=== PATIENT | female | born 1970 ===

== ENCOUNTER 2021-02-06 05:10 | Observation (INO) ==
--- NOTE | 2021-01-29 10:28 | Anesthesiology Consultation ---
Date of Service January 29, 2021 Assessment & Plan (1) Encounter for pre-operative examination: - COVID screening: Per assessment on 01/29: Travel screen negative, no known COVID-19 positive contacts or current COVID-19 related symptoms. Surgeon trey stevenson preop COVID testing. Awaiting results. - Check test AM DOS Chart Review Chart Review: Acceptable Risk for Surgery and Patient NOT seen in Pre Admission Testing History Surgery Operation Date: 02/06/21 07:00 Proposed Procedures p Total Laparoscopic Hysterectomy, Bilateral Salpingectomy Cystoscopy Possible Laparotomy - Nimesh Celeste MD Height/Weight Height: 5 ft 5 in Weight: 104.326 kg Allergies Allergy/AdvReac Type Severity Reaction Status Date / Time No Known Allergies Allergy Verified 01/29/21 10:04 Medications Home Medications Medication Instructions Recorded Confirmed Last Taken norethindrone acetate 5 mg tablet 5 mg PO BID 01/29/21 01/29/21 Unknown Past Medical History Medical History History of COVID-19 Dx 04/2020 > symptoms at time of fatigue, fever chills > resolved Obesity Past Surgical History Surgical History History of dilation and curettage Social History Smoking Status: Never smoker Do You Dip or Chew Tobacco: No Hx Alcohol Use: Yes Alcohol type: beer alcohol intake frequency: a few times a month Hx Substance Use: No substance use type: does not use
[2021-02-06] MEDS ORDERED: ceFAZolin 2000MG 2,000 MG/15 ML SYR IV SCH (06:00)
[2021-02-06] MEDS ORDERED: LACTATED RINGER'S 1,000 ML IV SCH (06:00)
[2021-02-06] MEDS ORDERED: LR 15ML/HR IV SCH (06:00)
[2021-02-06] MEDS ORDERED: KETOROLAC 30 MG/ML VIAL IV PRN (06:24)
[2021-02-06] MEDS ORDERED: PROMETHAZINE HCL 6.25 MG in SODIUM CHLORIDE 0.9% 50 ML IV PRN (06:24)
[2021-02-06] MEDS ORDERED: ONDANSETRON INJ 2 MG/ML 2 ML VIAL IV PRN ×2 (06:24→10:25)
[2021-02-06] MEDS ORDERED: ATROPINE SULFATE 0.1 MG/ML 10ML SYR IV PRN (06:24)
[2021-02-06] MEDS ORDERED: LABETALOL HCL IV 5 MG/ML 20ML IV PRN (06:24)
[2021-02-06] MEDS ORDERED: fentaNYL citrate 100 MCG/2 ML VIAL IV PRN (06:24)
[2021-02-06] MEDS ORDERED: PROPOFOL IV EMULSION 10 MG/ML 20 ML VIAL IV ONE (06:36)
[2021-02-06] MEDS ORDERED: ROCURONIUM BROMIDE 10 MG/ML 5 ML VIAL IV ONE (06:36)
[2021-02-06] MEDS ORDERED: LIDOCAINE 2% 2 ML VIAL/AMP(20MG/ML) INFIL ONE (06:36)
[2021-02-06] MEDS ORDERED: fentaNYL citrate 100 MCG/2 ML VIAL ONE ×3 (06:36→09:54)
[2021-02-06] MEDS ORDERED: MIDAZOLAM HCL 1 MG/ML 2ML VIAL ONE (06:37)
[2021-02-06] MEDS ORDERED: BUPIVACAINE 0.5 % 5 MG/1 ML MPF 30ML VIAL ONE (06:53)
--- NOTE | 2021-02-06 06:56 | History & Physical Bridge Note ---
Date of Service February 06, 2021 History & Physical Bridge Note I have examined the patient, reviewed the History & Physical and in the interval since the performance of the History & Physical I have noted the following changes of clinical significance: no changes noted
[2021-02-06] MEDS ORDERED: ONDANSETRON INJ 2 MG/ML 2 ML VIAL ONE (08:22)
[2021-02-06] MEDS ORDERED: DEXAMETHASONE SOD INJ 4 MG/ML VIAL ONE (08:22)
[2021-02-06] MEDS ORDERED: GLYCOPYRROLATE 0.2 MG/ML VIAL ONE (08:22)
[2021-02-06] MEDS ORDERED: NEOSTIGMINE METHYLSULFATE 1 MG/ML 10ML VIAL ONE (08:22)
[2021-02-06] MEDS ORDERED: ePHEDrine sulfate 50 MG/ML SYR ONE (08:22)
[2021-02-06] MEDS ORDERED: FLOSEAL HEMOSTATIC MATRIX 10ML TOP ONE (09:39)
[2021-02-06] MEDS ORDERED: HYDROmorphone INJ 2 MG/ML SYR/VIAL ONE (09:56)
[2021-02-06] MEDS ORDERED: PROMETHAZINE HCL 12.5 MG in SODIUM CHLORIDE 0.9% 50 ML IV PRN (10:25)
[2021-02-06] MEDS ORDERED: MAGNESIUM HYDROXIDE SUSP 30 ML UDC PO PRN (10:25)
[2021-02-06] MEDS ORDERED: PROMETHAZINE HCL 25 MG in SODIUM CHLORIDE 0.9% 50 ML IV PRN (10:25)
[2021-02-06] MEDS ORDERED: bisacodyL 10 MG SUPP PR PRN (10:25)
[2021-02-06] MEDS ORDERED: ZOLPIDEM TARTRATE 5 MG TAB PO PRN (10:25)
--- NOTE | 2021-02-06 10:25 | Post Operative Brief Note ---
Immediate Post Op Note v1 Date of Surgery February 06, 2021 Pre & Post Diagnosis Operation Date: 02/06/21 07:00 Pre-Op Diagnosis: Menorrhagia Post-Op Diagnosis: Menorrhagia I identified the patient and participated in the time-out.: Yes Procedure Operation Date: 02/06/21 07:00 Actual Procedures p Total Laparoscopic Hysterectomy, Bilateral Salpingectomy, Cystoscopy(Not Applicable) - Nimesh Celeste MD Surgeon Nimesh Celeste MD Community Service Worker inna Martinez Estimated Blood Loss 10 Findings Consistent with Post-Op Diagnosis Drains Davis Catheter
--- NOTE | 2021-02-06 10:59 | Anesthesiology Progress Note ---
Date of Service February 06, 2021 Anesthesia Post Procedure Vital Signs Vital Signs: Temp Pulse Pulse Resp BP Pulse Ox 02/06/21 10:50 101 H 17 123/77 100 02/06/21 10:40 96 H 15 127/82 100 02/06/21 10:30 102 H 13 116/68 100 02/06/21 10:23 98.4 F 108 H 20 130/73 98 02/06/21 05:32 98.2 F 110 H 18 164/84 H 97 Transfer of Care Handoff Completed per policy Notes Mental Status: alert / awake / arousable Patient Amnestic to Procedure: Yes Nausea / Vomiting: adequately controlled Pain: adequately controlled Airway Patency, RR, SpO2: stable & adequate BP & HR: stable & adequate Hydration State: stable & adequate Anesthetic Complications: no major complications apparent and Pt Satisfied with anesthetic care
[2021-02-06] MEDS: LACTATED RINGER'S 1,000 ML IV SCH ×2 (12:00→21:53)
[2021-02-06] MEDS: IBUPROFEN 600 MG TAB PO PRN (15:13)
[2021-02-06] MEDS: SIMETHICONE 80 MG CHEW PO PRN (16:25)
[2021-02-06] MEDS: oxyCODONE/ACETAMINOPHEN 5mg/325mg TAB PO PRN (16:25)
[2021-02-06] MEDS: DOCUSATE SODIUM 100 MG CAP PO SCH (20:31)
[2021-02-06 20:35] LABS: Hematocrit (blood only) 18.7 % (37-47)
--- NOTE | 2021-02-06 20:38 | Operative Report (OR) ---
DATE OF PROCEDURE: 02/06/2021. INDICATION FOR SURGERY: This is a 50-year-old with dysfunctional uterine bleeding, failed medical th erapy. PREOPERATIVE DIAGNOSES: 1. Menorrhagia. 2. Dysfunctional uterine bleeding, failed medical therapy. POSTOPERATIVE DIAGNOSES: 1. Menorrhagia. 2. Dysfunctional uterine bleeding, failed medical therapy. SURGEON: Nimesh Celeste MD. X RAY DEVELOPER: LIZ Moore. ATTESTATION FOR X RAY DEVELOPER: Specialty Manufacturing Supervisor's presence was necessary to help with manipulation of instrumen ts and retraction as well as providing appropriate better visualization to have safe procedure. PROCEDURES: 1. Examination under anesthesia. 2. Total laparoscopic hysterectomy, bilateral salpingectomy, and cystoscopy. ANESTHESIA: General. DRAINS: Davis catheter. ESTIMATED BLOOD LOSS: 5 mL. INTRAVENOUS FLUIDS: 1700 mL. URINE OUTPUT: 250 mL, clear urine at the end of the procedure. SPECIMENS: Uterus and cervix, left and right fallopian tubes. INTRAOPERATIVE COMPLICATIONS: None. PATIENT'S CONDITION: Stable. DISPOSITION: Postanesthesia care unit. FINDINGS: Normal female escutcheon. No lesion is seen in the vagina on the cervix. Laparoscopic ex am shows a uterus of about 15-week size. Both ovaries appeared grossly normal. There were no signif icant abdominopelvic adhesions in the abdomen. DESCRIPTION OF PROCEDURE: The patient was taken to the operating room where she was prepped and drap ed in normal sterile fashion. Timeout was called. A Davis catheter was placed in the patient's blad jovana. A weighted speculum was placed in the vagina. Mckenzie retractor was used to retract any part of t he vagina. Single tooth tenaculum was used to grab the cervix. Uterus was sounded and a VCare uteri ne manipulator was placed into the uterus without difficulty. Attention was paid to the abdominal part of the procedure where a supraumbilical incision was made 4 cm above the umbilicus. This was made with a 11 blade. A long Velma was used to dissect the subcuta neous space to palpate the fascia. Veress needle was introduced into the fascia at a 45-degree angle while tenting up the abdomen. Abdominal placement of the Veress needle was confirmed with a water-f illed syringe, a suction and water drop test was performed. Abdomen is insufflated with 4 L of CO2. Veress needle was removed and a size 10 nonbladed trocar with a laparoscope was introduced into the abdomen at a 45-degree angle while tenting up the abdomen, this was done under direct visualization. Once inside the abdomen, three more accessory ports were placed, two 5 mm trocars and 10 trocar on t he left lower quadrant of the abdomen. Findings of the abdomen are as dictated above. All these acc essory ports were placed in Trendelenburg position. LigaSure was passed through the left accessory port. The left fallopian tube was grabbed 4 cm from t he cornua with the LigaSure and transected. This was followed by opening of the left anterior leaf o f the broad ligament. The left round ligament and left utero-ovarian ligament were also transected. The mesovarian ligament and dissection was also transected. There was good hemostasis. Anterior br oad ligament dissection was carried out to the mid-section of the vesicouterine peritoneum with the b ladder using the Harmonic scalpel. Same procedure was carried on the contralateral side. The paint tinter ior broad ligaments were carefully dissected along from both sides over the uterosacral arch in order to display the ureters laterally. Using traction and countertraction and the Maryland retractor and irrigation probe was used to further dissect the bladder off the lower segment of the uterus. Bladd er pillars and pubovesical fascia was dissected as well. Harmonic scalpel was used to obtain hemosta sis whenever needed. The uterine manipulator was not palpable over the vaginal tissue. The right uterine pedicle skeleton ized and coagulated with LigaSure. There was good hemostasis. Same procedure was performed on the c ontralateral side. The cardinal ligament transected from both sides. Once good hemostasis was obtained, colpotomy was performed using the Harmonic scalpel from both sides . Uterus was removed through the vagina while still attached to the uterine manipulator. A glove-fi lled with gauze was placed into the vagina to maintain hemostasis. The left and right fallopian tubes are transected. The fallopian tube was positioned medially anteri analilia and a salpingectomy was performed. Same procedure was performed on the contralateral side. The se tubes removed through the left lower 10 mm trocar site. Hemostasis was obtained. Copious amount of irrigation was used to irrigate the abdomen. EndoStitch closure device was passed through the 10 mm port on the left side using the Maryland grasp er for traction. A colpotomy closure was performed. The uterosacral ligaments were incorporated int o the closure to decrease the risk of prolapse. Lapra-Tys were used with the EndoStitch. Attention was paid to the cystoscopy part of the procedure where a 30-degree scope was placed into th e bladder. On evaluation of the bladder. There were no sutures seen. There was no gross bleeding. There was no trauma. A bubble was seen anterior of the bladder, which indicates a closed cavity. T he both left and right urethral orifices are seen. Urine was seen jetting through both orifices with out any difficulty. The scope was removed from the bladder. Attention was paid back to the abdominal part of the procedure where the 10 mm sites were closed. Th e fascia at 10 mm sites was grabbed with Kochers, Vicryl stitch was used to close the fascia and plai n suture used to close the subcutaneous space. The patient had significant BMI. This was done to destiny th the 10 mm port site entries. Skin was closed with 4-0 Monocryl. The 5 mm sites; however, are lucrecia sed with Dermabond sealant. All instruments were removed from the abdomen and vagina and accounted for x2 including sponges, need les, and retractors. The patient was sent in recovery in stable condition. Job ID: [id number]
[2021-02-06] MEDS ORDERED: SODIUM CHLORIDE 0.9% 250 ML IV PRN (20:58)
[2021-02-06] MEDS ORDERED: diphenhydrAMINE Capsule 25 MG CAP PO ONE (21:07)
[2021-02-06] MEDS ORDERED: LACTATED RINGER'S 500 ML IV ONE (21:24)
[2021-02-06 21:45] LABS: Hematocrit (blood only) 20.3 % (37-47); Hemoglobin 5.3 g/dL (12.0-16.0)
[2021-02-06] MEDS: ACETAMINOPHEN 325 MG TAB PO PRN (21:49)
--- NOTE | 2021-02-06 21:56 | Progress Note ---
Date of Service February 06, 2021 Assessment & Plan Admission and Anticipated Discharge Date Admission Date: February 06, 2021 Subjective Called by Nurse to see pt with STAT H/H of 10/07 On arrival pt is alert,awake, denies any SOB and completely asymptomatic BP is 130-140/80's Pulse is low 100's Urine output >30 No bleeding from vagina Review of her vitals are not significantly changed from preop Preop H/H is not available for review. PE; Lung CTA bilat Abd; Incision VC/D/I , No guarding or rebound Plan repeat H/H repeated agree to 2 units PRBC transfer Results & Data ([facility]) Vital Signs (Past 12 Hours) Vital Signs Temp Pulse Pulse Pulse Resp BP Pulse Ox 02/06/21 21:15 36.4 C L 114 H 20 135/77 98 02/06/21 19:40 36.8 C 106 H 18 143/80 H 98 02/06/21 15:07 36.7 C 101 H 16 132/78 97 02/06/21 14:05 36.4 C L 102 H 16 150/88 H 97 02/06/21 13:06 36.7 C 102 H 16 119/72 96 02/06/21 12:33 36.4 C L 108 H 16 121/75 96 02/06/21 12:05 36.8 C 110 H 16 136/80 96 02/06/21 11:50 91 H 17 132/78 97 02/06/21 11:35 105 H 16 124/76 97 02/06/21 11:20 93 H 16 127/80 97 02/06/21 11:10 106 H 16 134/81 97 02/06/21 11:00 36.9 C 92 H 14 125/79 98 02/06/21 10:50 101 H 17 123/77 100 02/06/21 10:40 96 H 15 127/82 100 02/06/21 10:30 102 H 13 116/68 100 02/06/21 10:23 36.9 C 108 H 20 130/73 98
[2021-02-07] MEDS: oxyCODONE/ACETAMINOPHEN 5mg/325mg TAB PO PRN ×4 (02:13→17:23)
[2021-02-07] MEDS: IBUPROFEN 600 MG TAB PO PRN ×5 (06:13→20:53)
[2021-02-07 06:57] LABS: Hemoglobin 7.1 g/dL (12.0-16.0); Mean Corpuscular Hgb Conc 29.6 g/dL (32-36); Mean Platelet Volume 10.5 fL (7.4-10.4); Platelet Count 278 K/uL (130-400); RDW Coefficient of Variation 25.3 % (11.5-14.5); RDW Standard Deviation 64.4 fL (36.4-46.3); Red Blood Count 3.38 M/uL (4.2-5.4); White Blood Count 11.85 K/uL (4.8-10.8)
[2021-02-07 07:02] LABS: Basophils # (auto) 0.02 K/uL (0-0.2); Basophils % (auto) 0.2 %; Eosinophils # (auto) 0.01 K/uL (0-0.5); Eosinophils % (auto) 0.1 %; Hypochromasia Present; Immature Granulocytes # (auto) 0.02 K/uL (0.00-0.02); Immature Granulocytes % (auto) 0.2 %; Lymphocytes % (auto) 28.7 %; Microcytosis Present; Monocytes % (auto) 7.6 %; Neutrophils % (auto) 63.2 %
[2021-02-07 07:12] LABS: BUN Creatinine Ratio 8.3 (10-20); Calcium 8.2 mg/dl (8.5-10.1); Creatinine Clr Calc Pharmacy 90.1 ml/min; Est GFR (Non-African American) 75.1 ml/min; Potassium 4.4 mmol/L (3.5-5.1)
[2021-02-07] MEDS: DOCUSATE SODIUM 100 MG CAP PO SCH ×2 (08:29→20:54)
[2021-02-07] MEDS: FERROUS SULFATE 325 MG TAB PO SCH ×2 (08:29→17:21)
--- NOTE | 2021-02-07 11:32 | Obstetrical Progress Note ---
Date of Service February 07, 2021 Assessment & Plan (1) S/P laparoscopic hysterectomy: (2) Chronic anemia: Post op day #1 pt doing well disch home with instructions Subjective Review of Systems All systems reviewed & are unremarkable except as noted in HPI & below Physical Exam Constitutional WD/WN, vitals as above Eyes PERRL, conjunctivae normal, anicteric sclerae ENMT external ear and nose normal, oropharynx normal Neck trachea midline, no thyromegaly Respiratory normal respiratory effort, lungs clear to auscultation Cardiovascular RRR, no murmur, no edema Chest (Breasts) normal inspection/palpation of breasts Gastrointestinal (Abdomen) normal bowel sounds, soft, nontender, no hepatosplenomegaly Musculoskeletal no cyanosis or clubbing, extremities motor strength 5/5 Skin + incision (Incision clean,dry and intact) Neurologic patellar DTR's 2+ bilat, sensation intact Psychiatric A+Ox3, euthymic affect Genitourinary no vaginal lesions, no adnexal mass Lymphatic no cervical or axillary lymphadenopathy Results & Data ([facility]) Vital Signs (Past 12 Hours) Vital Signs Temp Pulse Pulse Pulse Resp BP BP 02/07/21 09:20 36.7 C 108 H 18 158/88 H 02/07/21 04:45 36.9 C 96 H 18 145/83 H 02/07/21 03:45 37.0 C 100 H 100 H 16 144/80 H 144/80 H 02/07/21 02:45 37.0 C 93 H 18 145/83 H 02/07/21 02:15 37.2 C 102 H 18 144/81 H 02/07/21 02:00 36.9 C 96 H 18 138/78 02/07/21 01:42 37.1 C 97 H 16 142/80 H 02/07/21 01:20 37.1 C 97 H 18 142/80 H 02/07/21 00:50 37.1 C 104 H 18 143/78 H 02/06/21 23:50 37.2 C 100 H 18 135/76 Pulse Ox 02/07/21 09:20 97 02/07/21 04:45 96 02/07/21 03:45 96 02/07/21 02:45 96 02/07/21 02:15 97 02/07/21 02:00 97 02/07/21 01:42 96 02/07/21 01:20 96 02/07/21 00:50 97 02/06/21 23:50 97
--- NOTE | 2021-02-07 11:39 | Progress Note ---
Date of Service February 07, 2021 Assessment & Plan Admission and Anticipated Discharge Date Admission Date: February 06, 2021 Subjective Pt doing well Received 2 units PRC for chronic anemia stable H/H disch home with instructions Results & Data ([facility]) Vital Signs (Past 12 Hours) Vital Signs Temp Pulse Pulse Pulse Resp BP BP 02/07/21 09:20 36.7 C 108 H 18 158/88 H 02/07/21 04:45 36.9 C 96 H 18 145/83 H 02/07/21 03:45 37.0 C 100 H 100 H 16 144/80 H 144/80 H 02/07/21 02:45 37.0 C 93 H 18 145/83 H 02/07/21 02:15 37.2 C 102 H 18 144/81 H 02/07/21 02:00 36.9 C 96 H 18 138/78 02/07/21 01:42 37.1 C 97 H 16 142/80 H 02/07/21 01:20 37.1 C 97 H 18 142/80 H 02/07/21 00:50 37.1 C 104 H 18 143/78 H 02/06/21 23:50 37.2 C 100 H 18 135/76 Pulse Ox 02/07/21 09:20 97 02/07/21 04:45 96 02/07/21 03:45 96 02/07/21 02:45 96 02/07/21 02:15 97 02/07/21 02:00 97 02/07/21 01:42 96 02/07/21 01:20 96 02/07/21 00:50 97 02/06/21 23:50 97
--- NOTE | 2021-02-07 13:05 | Progress Note ---
Date of Service February 07, 2021 Assessment & Plan Admission and Anticipated Discharge Date Admission Date: February 06, 2021 Subjective Pt is fatigued, HR is still in the 100;s Recommend keeping for prolonged observation Results & Data ([facility]) Vital Signs (Past 12 Hours) Vital Signs Temp Pulse Pulse Pulse Resp BP BP 02/07/21 09:20 36.7 C 108 H 18 158/88 H 02/07/21 04:45 36.9 C 96 H 18 145/83 H 02/07/21 03:45 37.0 C 100 H 100 H 16 144/80 H 144/80 H 02/07/21 02:45 37.0 C 93 H 18 145/83 H 02/07/21 02:15 37.2 C 102 H 18 144/81 H 02/07/21 02:00 36.9 C 96 H 18 138/78 02/07/21 01:42 37.1 C 97 H 16 142/80 H 02/07/21 01:20 37.1 C 97 H 18 142/80 H Pulse Ox 02/07/21 09:20 97 02/07/21 04:45 96 02/07/21 03:45 96 02/07/21 02:45 96 02/07/21 02:15 97 02/07/21 02:00 97 02/07/21 01:42 96 02/07/21 01:20 96
--- NOTE | 2021-02-07 19:14 | Discharge Summary (DS) ---
DATE OF ADMISSION: 02/06/2021. DATE OF DISCHARGE: 02/09/2021. HOSPITAL COURSE: This is a 50-year-old with menorrhagia and fibroid uterus, failed medical therapy. The patient on 02/06/2021 underwent total laparoscopic hysterectomy, bilateral salpingectomy, and cystoscopy; met all milestones in recovery and today is being discharged home in stable condition. Details of surgery is in the surgical note. The patient after surgery, continued to have mild tachycardia. Workup done later that evening showed a hemoglobin of 5.0. The patient had had chronic anemia, blood loss was not acute and was not intraoperative. This is a reflection of preoperative having a low H and H. Because of the bradycardia, decision was therefore made to transfuse the patient with two units of blood. She received 2 units of blood and her hemoglobin was stable at 7.1. Pt continued to experience SOB and fatigued. she was therefore given an a addition unit of PRBC on02/07/21. her SOB and generalized fatigue improved. She ws worked up for chest pain via internal medicine. this included an echocardiogram. Echo was nml . pt was also started on antihypertensive her Bp improved Otherwise, the patient met all milestones in recovery. She is able to ambulate, tolerate p.o. food, and medications. PAST MEDICAL HISTORY: History of obesity, elevated BMI. PAST SURGICAL HISTORY: History of D and C. FAMILY HISTORY: Noncontributory. SOCIAL HISTORY: The patient is and lives with spouse and children. Denies tobacco or drug use. ALLERGIES: No known drug allergies. PHYSICAL EXAMINATION: GENERAL: Well-developed, well-nourished white female, fatigued after surgery and chronic blood loss. VITAL SIGNS: Blood pressure 130/80pulse 90, respirations 18, temperature is 36.7. LABORATORY DATA: White count 11.8, hemoglobin 7.1, hematocrit 24.0, platelets 278. CONDITION ON DISCHARGE: Stable. OPERATIONS: Total laparoscopic hysterectomy, bilateral salpingectomy, cystoscopy, history of chronic anemia. DISCHARGE DIAGNOSES: 1. Menorrhagia failed medical therapy. S/P lap hysterectomy 2. Chronic anemia. s/p Blood transfusion 3. HTN 4. shortness of breath 5 Chest pain PLAN ON DISCHARGE: The patient is discharged home with instructions regarding activity, diet, followup appointment and medications. Job ID: [id number] [facility]
[2021-02-07 20:01] LABS: Hematocrit (blood only) 25.3 % (37-47); Hemoglobin 7.3 g/dL (12.0-16.0); Mean Corpuscular Hemoglobin 20.7 pg (25-34); Mean Corpuscular Hgb Conc 28.9 g/dL (32-36); Mean Corpuscular Volume 71.9 fL (80-100); Mean Platelet Volume 9.6 fL (7.4-10.4); Platelet Count 258 K/uL (130-400); RDW Coefficient of Variation 24.8 % (11.5-14.5); RDW Standard Deviation 63.9 fL (36.4-46.3); Red Blood Count 3.52 M/uL (4.2-5.4); White Blood Count 10.49 K/uL (4.8-10.8)
[2021-02-07] MEDS ORDERED: SODIUM CHLORIDE 0.9% 250 ML IV PRN (20:19)
[2021-02-07] MEDS ORDERED: diphenhydrAMINE Capsule 25 MG CAP PO ONE (20:23)
[2021-02-07] MEDS: ACETAMINOPHEN 325 MG TAB PO PRN (20:53)
[2021-02-07] MEDS: SIMETHICONE 80 MG CHEW PO PRN (20:53)
[2021-02-08] MEDS: oxyCODONE/ACETAMINOPHEN 5mg/325mg TAB PO PRN (04:05)
[2021-02-08] MEDS: IBUPROFEN 600 MG TAB PO PRN ×2 (04:05→13:55)
[2021-02-08 07:04] LABS: Anisocytosis Present; Basophils # (auto) 0.05 K/uL (0-0.2); Basophils % (auto) 0.4 %; Eosinophils # (auto) 0.23 K/uL (0-0.5); Hemoglobin 7.8 g/dL (12.0-16.0); Hypochromasia Present; Immature Granulocytes # (auto) 0.04 K/uL (0.00-0.02); Immature Granulocytes % (auto) 0.3 %; Lymphocytes % (auto) 20.7 %; Mean Corpuscular Hemoglobin 21.8 pg (25-34); Mean Corpuscular Hgb Conc 28.9 g/dL (32-36); Mean Corpuscular Volume 75.4 fL (80-100); Mean Platelet Volume 10.5 fL (7.4-10.4); Monocytes # (auto) 0.83 K/uL (0.11-0.59); Monocytes % (auto) 7.2 %; Neutrophils # (auto) 8.02 K/uL (1.4-6.5); Neutrophils % (auto) 69.4 %; Platelet Count 263 K/uL (130-400); Polychromasia 1+; RDW Coefficient of Variation 25.8 % (11.5-14.5); RDW Standard Deviation 70.1 fL (36.4-46.3); Red Blood Count 3.58 M/uL (4.2-5.4); White Blood Count 11.57 K/uL (4.8-10.8)
[2021-02-08 07:18] LABS: BUN Creatinine Ratio 12.1 (10-20); Calcium 8.3 mg/dl (8.5-10.1); Creatinine Clr Calc Pharmacy 102.7 ml/min; Est GFR (African American) 101.9 ml/min; Est GFR (Non-African American) 87.9 ml/min; Potassium 4.1 mmol/L (3.5-5.1)
--- NOTE | 2021-02-08 08:07 | Internal Medicine Consult Note ---
Date of Consultation February 08, 2021 Assessment & Plan (1) S/P laparoscopic hysterectomy: Atypical Chest Pain R/O ACS Initial troponin:Negative EKG shows:No signs of acute Ischemia CXR: Reticular opacities are seen bilaterally with a superimposed patchy airspace component in the left retrocardiac region, findings are concerning for pneumonia. ECHO: Pending Trend serial cardiac enzymes, repeat EKG Consider starting on Aspirin if recurrence of chest pain Check Lipid panel Hypertension could have contributed. Abnormal Chest X ray: CXR as above H/O COVID as per records Findings likely secondary to prior Covid infection Currently denies any cough, wheezing, shortness of breath Repeat Covid screen negative Normal Procalcitonin HTN Started on Amlodipine IV fluids discontinued Pain control Consider adjusting antihypertensives as needed Mild leukocytosis Likely reactive secondary to recent surgery Monitor CBC Acute postoperative blood loss anemia S/P 3 units PRBC Anemia work up ordered Monitor CBC H/O menorrhagia S/P Total Laparoscopic Hysterectomy, Bilateral Salpingectomy, Cystoscopy POD #2 Pain management, wound care as per OBGYN DVT Px: As per Primary Team Thank you for this consultation. We will follow the patient with you during their hospital stay. You can reach a member of the [facility]ist Team via [employer]. History of Present Illness Reason for Consultation: Chest Pain, Hypertension Requesting Physician: Gagandeep Trevino Attending Physician: Nimesh Celeste MD History of Present Illness Patient is a 50-year-old female with history of menorrhagia and no other significant medical problems and underwent total laparoscopic hysterectomy, bilateral salpingectomy, cystoscopy was requested for evaluation of chest pain and hypertension. Patient is found to be anemic postoperatively and received 3 units PRBCs. Currently she denies any bleeding issues. States having transient retrosternal squeezing type of chest pain which woke her up this morning and resolved without any intervention. Patient states that chest pain did not radiate, not associated with nausea, diaphoresis, shortness of breath, dizziness. Chest pain lasted for about 15 minutes. She admits to have high blood pressure when evaluated by PCP previously and was advised to monitor without any medications for now. She denies any significant pain at surgical site. Also denies any history of palpitations, orthopnea, pedal edema, cough, wheezing, hemoptysis, fever, chills, headache, change in vision, nausea, vomiting, blood in stools, diarrhea, dysuria, hematuria. Allergies Allergy/AdvReac Type Severity Reaction Status Date / Time No Known Allergies Allergy Verified 02/06/21 05:30 Home Medications Medication Instructions Recorded Confirmed Type norethindrone acetate 5 mg tablet 5 mg PO BID 01/29/21 02/06/21 History docusate sodium 100 mg capsule 100 mg PO BID #60 cap 02/07/21 Rx ferrous sulfate 325 mg (65 mg 325 mg PO BIDM #60 tab 02/07/21 Rx iron) tablet,delayed release ibuprofen 600 mg tablet 600 mg PO Q4H #60 tab 02/07/21 Rx oxycodone-acetaminophen 5 mg-325 1 tab PO Q4H #30 tab 02/07/21 Rx mg tablet (Percocet) Patient History Medical History History of COVID-19 Dx 04/2020 > symptoms at time of fatigue, fever chills > resolved Obesity Surgical History History of dilation and curettage Family History Father Diabetes COPD (chronic obstructive pulmonary disease) Social History Smoking Status: Never smoker Second Hand Exposure: No; Do You Dip or Chew Tobacco: No; Tobacco Cessation Education Requested by Patient: No Hx Alcohol Use: Yes Alcohol type: beer Hx Substance Use: No Preferred Language: Yoruba Communication Ability: Effective 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 Beliefs That Will Affect Care: None Current Living Situation: Spouse Other Information That Helps Us Care for You: No Feels Safe at Home: Yes Safety Concerns: Feels Safe At This Time Assistive Devices: None Review of Systems Review of Systems: All systems reviewed & are unremarkable except as noted in Subjective Physical Exam Physical Exam: Physical Exam: Vitals signs as noted above General Appearance:Obese, no apparent distress Head: normocephalic, Atraumatic Eyes: normal inspection, EOMI, PERRL Neck: supple, Trachea midline Respiratory/Chest: Normal breath sounds, minimal basal crackles, No accessory muscle use Cardiovascular: S1, S2, No murmur Abdomen/GI:Soft, Non tender, Bowel sounds present, +Laparoscopic surgical scars Extremities/Musculoskeletal:normal inspection, no edema Neurologic/Psych:AAOX3, grossly no focal neurological deficits Skin: normal color, warm Results & Data ([facility]) Vital Signs (Past 12 Hours) Vital Signs Temp Pulse Pulse Resp BP BP Pulse Ox 02/08/21 05:35 84 134/85 02/08/21 04:05 36.7 C 92 H 18 159/92 H 96 02/08/21 00:28 36.9 C 91 H 18 142/91 H 97 02/07/21 23:00 36.8 C 90 16 151/92 H 96 02/07/21 22:28 36.8 C 89 16 143/86 H 97 02/07/21 22:00 36.8 C 89 18 144/89 H 97 02/07/21 21:45 36.8 C 96 H 18 158/93 H 97 02/07/21 21:24 36.8 C 90 18 150/83 H 97 Laboratory Results Short CBC 02/07/21 02/08/21 Range/Units 19:41 06:20 WBC 10.49 11.57 H (4.8-10.8) K/uL Hgb 7.3 L 7.8 L (12.0-16.0) g/dL Hct 25.3 L 27.0 L (37-47) % Plt Count 258 263 (130-400) K/uL BMP 02/08/21 06:20 Sodium 139 Potassium 4.1 Chloride 110 H Carbon Dioxide 23 BUN 10 Creatinine 0.79 Glucose 103 H Calcium 8.3 L Cardiac Enzymes 02/08/21 Range/Units 08:51 Troponin I < 0.015 (0-0.045) ng/ml Diagnostic Findings CXR:Reticular opacities are seen bilaterally with a superimposed patchy airspace component in the left retrocardiac region, findings are concerning for pneumonia. Medications Administered Current Inpatient Medications Acetaminophen (Acetaminophen 325 Mg Tab) 650 mg PO Q6H PRN PRN Reason: pain, headache or fever Stop: 03/08/21 10:24 Last Admin: 02/08/21 10:14 Dose: 650 mg Documented by: Amlodipine Besylate (Amlodipine Besylate 5 Mg Tab) [facility] [place]: 03/11/21 08:59 Bisacodyl (Bisacodyl 10 Mg Supp) 10 mg TX DAILY PRN PRN Reason: Constipation or flatulance Stop: 03/08/21 10:24 Docusate Sodium (Docusate Sodium 100 Mg Cap) 100 mg PO BID [facility] Stop: 03/08/21 20:59 Last Admin: 02/08/21 08:29 Dose: 100 mg Documented by: Ferrous Sulfate (Ferrous Sulfate 325 Mg Tab) 325 mg PO BIDM [facility] Stop: 03/09/21 07:59 Last Admin: 02/08/21 08:29 Dose: 325 mg Documented by: Promethazine HCl 12.5 mg/ (Sodium Chloride) 50.5 mls @ 204 mls/hr IV Q6H PRN PRN Reason: Nausea And Vomiting Stop: 03/08/21 10:24 Promethazine HCl 25 mg/ Sodium (Chloride) 51 mls @ 204 mls/hr IV Q6H PRN PRN Reason: Nausea And Vomiting Stop: 03/08/21 10:24 Ibuprofen (Ibuprofen 600 Mg Tab) 600 mg PO Q4H PRN PRN Reason: pain, HUBER, cramping or fever Stop: 03/08/21 10:24 Last Admin: 02/08/21 13:55 Dose: 600 mg Documented by: Magnesium Hydroxide (Magnesium Hydroxide Susp 30 Ml Udc) 30 ml PO Q6H PRN PRN Reason: Constipation Stop: 03/08/21 10:24 Ondansetron HCl (Ondansetron Inj 2 Mg/Ml 2 Ml Vial) 4 mg IV Q6H PRN PRN Reason: Nausea And Vomiting Stop: 03/08/21 10:24 Oxycodone/Acetaminophen (Oxycodone/Acetaminophen 5mg/325mg Tab) 1 tab PO Q4H PRN PRN Reason: Pain Scale 1,2,3,4,5 Stop: 02/20/21 10:24 Last Admin: 02/08/21 04:05 Dose: 1 tab Documented by: Simethicone (Simethicone 80 Mg Chew) 80 mg PO TID PRN PRN Reason: Gas Stop: 03/08/21 10:24 Last Admin: 02/07/21 20:53 Dose: 80 mg Documented by: Zolpidem Tartrate (Zolpidem Tartrate 5 Mg Tab) 5 mg PO HS PRN PRN Reason: Sleep Stop: 03/08/21 10:24 ECG Additional Comments: EKG:NSR, QTC 423, No signs of acute Ischemia
[2021-02-08] MEDS: DOCUSATE SODIUM 100 MG CAP PO SCH ×2 (08:29→20:00)
[2021-02-08] MEDS: FERROUS SULFATE 325 MG TAB PO SCH ×2 (08:29→20:01)
[2021-02-08] MEDS ORDERED: amLODIPine BESYLATE 5 MG TAB PO ONE (09:21)
[2021-02-08 09:37] LABS: Ferritin 12.5 ng/ml (8-388); Iron 22 mcg/dl (35-150); Magnesium 2.5 mg/dl (1.8-2.4); Total Iron Binding Capacity 430 mcg/dl (250-450); Transferrin 356 mg/dl (200-360); Troponin I < 0.015 ng/ml (0-0.045)
--- NOTE | 2021-02-08 09:40 | XRay Report ---
XR chest 2V PA/lateral CLINICAL HISTORY: chest pain COMPARISON STUDY: No previous studies for comparison. FINDINGS: No pneumothorax. No pleural effusion. Reticular opacities are seen throughout bilateral lungs. There is superimposed patchy airspace compon ent with air bronchograms which is seen within left retrocardiac region. Cardiomediastinal silhouette is within normal limits in size. No significant pulmonary vascular congestion.. Osseous structures: unremarkable IMPRESSION: 1. Reticular opacities are seen bilaterally with a superimposed patchy airspace component in the lef t retrocardiac region, findings are concerning for pneumonia. ACT 112: Negative or not required by law. The above report was generated using voice recognition software. It may contain grammatical, syntax o r spelling errors. Electronically signed by: Lourdes Quevedo DO 02/08/2021 9:39 AM
[2021-02-08 09:51] LABS: Folate (Folic Acid) 19.8 ng/ml (>5.38)
[2021-02-08] MEDS: ACETAMINOPHEN 325 MG TAB PO PRN (10:14)
--- NOTE | 2021-02-08 12:10 | Gynecologic Progress Note ---
Date of Service February 08, 2021 Assessment & Plan Admission and Anticipated Discharge Date Admission Date: February 06, 2021 Subjective Patient is seen and examined. She feels well, no complaints. Pain is under control with oral meds. Ambulating without dizziness Voiding without difficulty Tolerating regular diet with out N&V Flatus + BM neg Bleeding is minimal No fever/ chills/ CP/ SOB/ N&V/ Leg pain Vital Signs Temp Pulse Pulse Pulse Resp BP BP 02/08/21 11:25 36.7 C 90 20 136/86 02/08/21 10:15 90 20 151/89 H 02/08/21 07:15 36.8 C 88 16 02/08/21 05:35 84 134/85 02/08/21 04:05 36.7 C 92 H 18 159/92 H 02/08/21 00:28 36.9 C 91 H 18 142/91 H 02/07/21 23:00 36.8 C 90 16 151/92 H 02/07/21 22:28 36.8 C 89 16 143/86 H 02/07/21 22:00 36.8 C 89 18 144/89 H 02/07/21 21:45 36.8 C 96 H 18 158/93 H 02/07/21 21:24 36.8 C 90 18 150/83 H 02/07/21 20:05 93 H 18 139/84 02/07/21 19:30 36.6 C 95 H 20 157/80 H 02/07/21 15:57 36.6 C 89 18 139/84 BP Pulse Ox 02/08/21 11:25 97 02/08/21 10:15 02/08/21 07:15 162/89 H 97 02/08/21 05:35 02/08/21 04:05 96 02/08/21 00:28 97 02/07/21 23:00 96 02/07/21 22:28 97 02/07/21 22:00 97 02/07/21 21:45 97 02/07/21 21:24 97 02/07/21 20:05 02/07/21 19:30 97 02/07/21 15:57 98 Intake and Output 02/07/21 02/08/21 02/08/21 22:59 06:59 14:59 Intake Total 0 / 1018.333 310 / 1018.333 Balance 0 / 618.333 618.333 Intake: Intake (Blood Product) Amt Packed Cells, Leukoreduced Unit [id number] Lab Results 02/06/21 02/06/21 02/06/21 Range/Units 05:38 20:09 20:09 WBC (4.8-10.8) K/uL RBC (4.2-5.4) M/uL Hgb 5.0 L* (12.0-16.0) g/dL Hct 18.7 L* (37-47) % MCV (80-100) fL MCH (25-34) pg MCHC (32-36) g/dL RDW Std Deviation (36.4-46.3) fL RDW Coeff of Leoncio (11.5-14.5) % Plt Count (130-400) K/uL MPV (7.4-10.4) fL Immature Gran % (Auto) % Neut % (Auto) % Lymph % (Auto) % [place] % (Auto) % Eos % (Auto) % Baso % (Auto) % Neut # (Auto) (1.4-6.5) K/uL Lymph # (Auto) (1.2-3.4) K/uL [place] # (Auto) (0.11-0.59) K/uL Eos # (Auto) (0-0.5) K/uL Baso # (Auto) (0-0.2) K/uL Immature Gran # (Auto) (0.00-0.02) K/uL Polychromasia Hypochromasia Anisocytosis Microcytosis Sodium (136-145) mmol/L Potassium (3.5-5.1) mmol/L Chloride (98-107) mmol/L Carbon Dioxide (21-32) mmol/L Anion Gap (3-11) BUN (7-18) mg/dl Creatinine (0.6-1.2) mg/dl Est Cr Clr Drug Dosing ml/min Est GFR ( Amer) ml/min Est GFR (Non-Af Amer) ml/min BUN/Creatinine Ratio (10-20) Glucose (70-99) mg/dl Calcium (8.5-10.1) mg/dl Magnesium (1.8-2.4) mg/dl Iron (35-150) mcg/dl TIBC (250-450) mcg/dl Transferrin (200-360) mg/dl Ferritin (8-388) ng/ml Troponin I (0-0.045) ng/ml Vitamin B12 (193-986) pg/ml Folate (>5.38) ng/ml Procalcitonin (0-0.5) ng/ml TSH (0.300-4.500) uIu/ml COVID-19 Eval Order SARS-CoV-2, RNA, NAAT (NEGATIVE) Blood Type A Positive Blood Type Recheck A Positive Antibody Screen NEGATIVE Crossmatch See Detail 02/06/21 02/07/21 02/07/21 Range/Units 21:25 06:18 06:18 WBC 11.85 H (4.8-10.8) K/uL RBC 3.38 L (4.2-5.4) M/uL Hgb 5.3 L* 7.1 L (12.0-16.0) g/dL Hct 20.3 L* 24.0 L (37-47) % MCV 71.0 L (80-100) fL MCH 21.0 L (25-34) pg MCHC 29.6 L (32-36) g/dL RDW Std Deviation 64.4 H (36.4-46.3) fL RDW Coeff of Leoncio 25.3 H (11.5-14.5) % Plt Count 278 (130-400) K/uL MPV 10.5 H (7.4-10.4) fL Immature Gran % (Auto) 0.2 % Neut % (Auto) 63.2 % Lymph % (Auto) 28.7 % [place] % (Auto) 7.6 % Eos % (Auto) 0.1 % Baso % (Auto) 0.2 % Neut # (Auto) 7.50 H (1.4-6.5) K/uL Lymph # (Auto) 3.40 (1.2-3.4) K/uL [place] # (Auto) 0.90 H (0.11-0.59) K/uL Eos # (Auto) 0.01 (0-0.5) K/uL Baso # (Auto) 0.02 (0-0.2) K/uL Immature Gran # (Auto) 0.02 (0.00-0.02) K/uL Polychromasia Hypochromasia Present Anisocytosis Microcytosis Present Sodium 138 (136-145) mmol/L Potassium 4.4 (3.5-5.1) mmol/L Chloride 110 H (98-107) mmol/L Carbon Dioxide 23 (21-32) mmol/L Anion Gap 5.0 (3-11) BUN 7 (7-18) mg/dl Creatinine 0.90 (0.6-1.2) mg/dl Est Cr Clr Drug Dosing 90.1 ml/min Est GFR ( Amer) 87.0 ml/min Est GFR (Non-Af Amer) 75.1 ml/min BUN/Creatinine Ratio 8.3 L (10-20) Glucose 92 (70-99) mg/dl Calcium 8.2 L (8.5-10.1) mg/dl Magnesium (1.8-2.4) mg/dl Iron (35-150) mcg/dl TIBC (250-450) mcg/dl Transferrin (200-360) mg/dl Ferritin (8-388) ng/ml Troponin I (0-0.045) ng/ml Vitamin B12 (193-986) pg/ml Folate (>5.38) ng/ml Procalcitonin (0-0.5) ng/ml TSH (0.300-4.500) uIu/ml COVID-19 Eval Order SARS-CoV-2, RNA, NAAT (NEGATIVE) Blood Type Blood Type Recheck Antibody Screen Crossmatch 02/07/21 02/08/21 02/08/21 Range/Units 19:41 06:20 06:20 WBC 10.49 11.57 H (4.8-10.8) K/uL RBC 3.52 L 3.58 L (4.2-5.4) M/uL Hgb 7.3 L 7.8 L (12.0-16.0) g/dL Hct 25.3 L 27.0 L (37-47) % MCV 71.9 L 75.4 L (80-100) fL MCH 20.7 L 21.8 L (25-34) pg MCHC 28.9 L 28.9 L (32-36) g/dL RDW Std Deviation 63.9 H 70.1 H (36.4-46.3) fL RDW Coeff of Leoncio 24.8 H 25.8 H (11.5-14.5) % Plt Count 258 263 (130-400) K/uL MPV 9.6 10.5 H (7.4-10.4) fL Immature Gran % (Auto) 0.3 % Neut % (Auto) 69.4 % Lymph % (Auto) 20.7 % [place] % (Auto) 7.2 % Eos % (Auto) 2.0 % Baso % (Auto) 0.4 % Neut # (Auto) 8.02 H (1.4-6.5) K/uL Lymph # (Auto) 2.40 (1.2-3.4) K/uL [place] # (Auto) 0.83 H (0.11-0.59) K/uL Eos # (Auto) 0.23 (0-0.5) K/uL Baso # (Auto) 0.05 (0-0.2) K/uL Immature Gran # (Auto) 0.04 H (0.00-0.02) K/uL Polychromasia 1+ Hypochromasia Present Anisocytosis Present Microcytosis Sodium 139 (136-145) mmol/L Potassium 4.1 (3.5-5.1) mmol/L Chloride 110 H (98-107) mmol/L Carbon Dioxide 23 (21-32) mmol/L Anion Gap 6.0 (3-11) BUN 10 (7-18) mg/dl Creatinine 0.79 (0.6-1.2) mg/dl Est Cr Clr Drug Dosing 102.7 ml/min Est GFR ( Amer) 101.9 ml/min Est GFR (Non-Af Amer) 87.9 ml/min BUN/Creatinine Ratio 12.1 (10-20) Glucose 103 H (70-99) mg/dl Calcium 8.3 L (8.5-10.1) mg/dl Magnesium (1.8-2.4) mg/dl Iron (35-150) mcg/dl TIBC (250-450) mcg/dl Transferrin (200-360) mg/dl Ferritin (8-388) ng/ml Troponin I (0-0.045) ng/ml Vitamin B12 (193-986) pg/ml Folate (>5.38) ng/ml Procalcitonin (0-0.5) ng/ml TSH (0.300-4.500) uIu/ml COVID-19 Eval Order SARS-CoV-2, RNA, NAAT (NEGATIVE) Blood Type Blood Type Recheck Antibody Screen Crossmatch 02/08/21 02/08/21 02/08/21 Range/Units 08:51 08:51 08:51 WBC (4.8-10.8) K/uL RBC (4.2-5.4) M/uL Hgb (12.0-16.0) g/dL Hct (37-47) % MCV (80-100) fL MCH (25-34) pg MCHC (32-36) g/dL RDW Std Deviation (36.4-46.3) fL RDW Coeff of Leoncio (11.5-14.5) % Plt Count (130-400) K/uL MPV (7.4-10.4) fL Immature Gran % (Auto) % Neut % (Auto) % Lymph % (Auto) % [place] % (Auto) % Eos % (Auto) % Baso % (Auto) % Neut # (Auto) (1.4-6.5) K/uL Lymph # (Auto) (1.2-3.4) K/uL [place] # (Auto) (0.11-0.59) K/uL Eos # (Auto) (0-0.5) K/uL Baso # (Auto) (0-0.2) K/uL Immature Gran # (Auto) (0.00-0.02) K/uL Polychromasia Hypochromasia Anisocytosis Microcytosis Sodium (136-145) mmol/L Potassium (3.5-5.1) mmol/L Chloride (98-107) mmol/L Carbon Dioxide (21-32) mmol/L Anion Gap (3-11) BUN (7-18) mg/dl Creatinine (0.6-1.2) mg/dl Est Cr Clr Drug Dosing ml/min Est GFR ( Amer) ml/min Est GFR (Non-Af Amer) ml/min BUN/Creatinine Ratio (10-20) Glucose (70-99) mg/dl Calcium (8.5-10.1) mg/dl Magnesium 2.5 H (1.8-2.4) mg/dl Iron 22 L (35-150) mcg/dl TIBC 430 (250-450) mcg/dl Transferrin 356 (200-360) mg/dl Ferritin 12.5 (8-388) ng/ml Troponin I < 0.015 (0-0.045) ng/ml Vitamin B12 188 L (193-986) pg/ml Folate 19.80 (>5.38) ng/ml Procalcitonin < 0.05 (0-0.5) ng/ml TSH 2.120 (0.300-4.500) uIu/ml COVID-19 Eval Order SARS-CoV-2, RNA, NAAT (NEGATIVE) Blood Type Blood Type Recheck Antibody Screen Crossmatch 02/08/21 02/08/21 Range/Units 11:00 11:00 WBC (4.8-10.8) K/uL RBC (4.2-5.4) M/uL Hgb (12.0-16.0) g/dL Hct (37-47) % MCV (80-100) fL MCH (25-34) pg MCHC (32-36) g/dL RDW Std Deviation (36.4-46.3) fL RDW Coeff of Leoncio (11.5-14.5) % Plt Count (130-400) K/uL MPV (7.4-10.4) fL Immature Gran % (Auto) % Neut % (Auto) % Lymph % (Auto) % [place] % (Auto) % Eos % (Auto) % Baso % (Auto) % Neut # (Auto) (1.4-6.5) K/uL Lymph # (Auto) (1.2-3.4) K/uL [place] # (Auto) (0.11-0.59) K/uL Eos # (Auto) (0-0.5) K/uL Baso # (Auto) (0-0.2) K/uL Immature Gran # (Auto) (0.00-0.02) K/uL Polychromasia Hypochromasia Anisocytosis Microcytosis Sodium (136-145) mmol/L Potassium (3.5-5.1) mmol/L Chloride (98-107) mmol/L Carbon Dioxide (21-32) mmol/L Anion Gap (3-11) BUN (7-18) mg/dl Creatinine (0.6-1.2) mg/dl Est Cr Clr Drug Dosing ml/min Est GFR ( Amer) ml/min Est GFR (Non-Af Amer) ml/min BUN/Creatinine Ratio (10-20) Glucose (70-99) mg/dl Calcium (8.5-10.1) mg/dl Magnesium (1.8-2.4) mg/dl Iron (35-150) mcg/dl TIBC (250-450) mcg/dl Transferrin (200-360) mg/dl Ferritin (8-388) ng/ml Troponin I (0-0.045) ng/ml Vitamin B12 (193-986) pg/ml Folate (>5.38) ng/ml Procalcitonin (0-0.5) ng/ml TSH (0.300-4.500) uIu/ml COVID-19 Eval [facility], RNA, NAAT NEGATIVE (NEGATIVE) Blood Type Blood Type Recheck Antibody Screen Crossmatch PE: General: Alert, orientedx3, NAD CVS: S1S2 RRR Lungs; CTAB Abd: soft, NT, ND, BS+ Incisions: Clean, dry, intact Ext; NT, no edema AP: 50 yo s/p TLH, BL salpingectomy, pod# 2 VSS Afebrile doing well Medicine evaluation pending for CP earlier If cleared by them d/c home this afternoon All questions were answered Discussed when to call. Results & Data ([facility]) Vital Signs (Past 12 Hours) Vital Signs Temp Pulse Pulse Pulse Resp BP BP 02/08/21 11:25 36.7 C 90 20 136/86 02/08/21 10:15 90 20 151/89 H 02/08/21 07:15 36.8 C 88 16 02/08/21 05:35 84 134/85 02/08/21 04:05 36.7 C 92 H 18 159/92 H 02/08/21 00:28 36.9 C 91 H 18 142/91 H BP Pulse Ox 02/08/21 11:25 97 02/08/21 10:15 02/08/21 07:15 162/89 H 97 02/08/21 05:35 02/08/21 04:05 96 02/08/21 00:28 97
[2021-02-08 16:16] LABS: Hematocrit (blood only) 29.4 % (37-47); Hemoglobin 8.6 g/dL (12.0-16.0)
--- NOTE | 2021-02-08 20:44 | Electrocardiogram Report ---
Test Reason : Blood Pressure : / mmHG Vent. Rate : 090 BPM Atrial Rate : 090 BPM P-R Int : 124 ms QRS Dur : 076 ms QT Int : 346 ms P-R-T Axes : 056 041 047 degrees QTc Int : 423 ms Normal sinus rhythm Normal ECG No previous ECGs available Confirmed by Tony Tompkins ([id number]) on 02/08/2021 8:44:25 PM Referred By: Nimesh Celeste Confirmed By:Tony Tompkins
[2021-02-09] MEDS ORDERED: ALUMINUM/MAGNESIUM/SIMETH (MAALOX MAX) 30 ML UDC PO STA (02:43)
[2021-02-09 03:31] VITALS: O2SAT 97
[2021-02-09 07:11] VITALS: BP 135/79; TEMP 98.8
[2021-02-09 07:14] LABS: Basophils # (auto) 0.06 K/uL (0-0.2); Basophils % (auto) 0.5 %; Eosinophils % (auto) 1.6 %; Hematocrit (blood only) 30.5 % (37-47); Hemoglobin 8.9 g/dL (12.0-16.0); Immature Granulocytes # (auto) 0.03 K/uL (0.00-0.02); Immature Granulocytes % (auto) 0.2 %; Lymphocytes # (auto) 2.54 K/uL (1.2-3.4); Lymphocytes % (auto) 19.8 %; Mean Corpuscular Hgb Conc 29.2 g/dL (32-36); Mean Corpuscular Volume 75.3 fL (80-100); Monocytes # (auto) 0.98 K/uL (0.11-0.59); Monocytes % (auto) 7.6 %; Neutrophils # (auto) 9.05 K/uL (1.4-6.5); Neutrophils % (auto) 70.3 %; Platelet Count 314 K/uL (130-400); RDW Coefficient of Variation 27.5 % (11.5-14.5); RDW Standard Deviation 71.5 fL (36.4-46.3); Red Blood Count 4.05 M/uL (4.2-5.4); White Blood Count 12.86 K/uL (4.8-10.8)
[2021-02-09 07:45] LABS: BUN Creatinine Ratio 10.4 (10-20); Calcium 8.3 mg/dl (8.5-10.1); Creatinine Clr Calc Pharmacy 101.4 ml/min; Est GFR (African American) 100.3 ml/min; Est GFR (Non-African American) 86.6 ml/min; Potassium 3.7 mmol/L (3.5-5.1)
[2021-02-09 08:02] LABS: Anisocytosis Present; Hypochromasia Present; Microcytosis Present; Polychromasia 1+
[2021-02-09] MEDS: FERROUS SULFATE 325 MG TAB PO SCH (08:15)
[2021-02-09] MEDS: DOCUSATE SODIUM 100 MG CAP PO SCH (08:16)
[2021-02-09] MEDS: IBUPROFEN 600 MG TAB PO PRN (08:31)
[2021-02-09] MEDS ORDERED: FAMOTIDINE 20 MG TAB PO STA (08:56)
[2021-02-09] MEDS ORDERED: amLODIPine BESYLATE 5 MG TAB PO SCH (09:00)
--- NOTE | 2021-02-09 09:01 | Hospitalist Progress Note ---
Date of Service February 09, 2021 Assessment & Plan (1) S/P laparoscopic hysterectomy: Plan: Atypical Chest Pain R/O ACS Troponin:Negative x 3 EKG shows:No signs of acute Ischemia, unchanged CXR: Reticular opacities are seen bilaterally with a superimposed patchy airspace component in the left retrocardiac region, findings are concerning for pneumonia. ECHO: EF 65-70%, mild tricuspid regurg Chest pain recurred overnight - resolved with maalox Lipid Panel - total chol 149, LDL 99, HDL 26, trig 120 ACS ruled out; however pt does have risk factors including HTN, obesity and +FH father [place] at age 61 Would recommend evaluation as outpt for further risk stratification for CAD with stress test when BP better controlled CP likely in setting of HTN ( BP 166/93 with CP onset @ 0300) and or GI related given resolved with maalox recommend pepcid 20mg at HS and lifestyle modifications for GERD Educated pt to monitor BP twice daily and keeping a log. She will be scheduled with PCP follow up recommend continue amlodipine for HTN Chest pain resolved at discharge Medically stable to D/C today - discussed with primary Abnormal Chest X ray: CXR as above H/O COVID as per records Findings likely secondary to prior Covid infection Currently denies any cough, wheezing, shortness of breath Repeat Covid screen negative Normal Procalcitonin HTN Started on Amlodipine Recommend to continue as outpt monitor BP twice daily, keep log and follow closely with PCP for further titration Mild leukocytosis Likely reactive secondary to recent surgery Monitor CBC No s/sx of infection Acute postoperative blood loss anemia S/P 3 units PRBC Anemia work up ordered Monitor CBC H/O menorrhagia S/P Total Laparoscopic Hysterectomy, Bilateral Salpingectomy, Cystoscopy POD #3 Pain management, wound care as per OBGYN DVT Px: As per Primary Team Thank you for this consultation. We will follow the patient with you during their hospital stay. You can reach a member of the [facility] Hospitalist Team via Martin Text. Please contact via Martin text with questions or concerns to Yudith Jin). Admission and Anticipated Discharge Date Admission Date: February 06, 2021 Supervising Physician Co-Signing Physician Notes I have seen and examined the patient and have discussed the case with the prov ider above. I agree with the assessment and plan as stated. [place], DO Subjective Patient was seen and examined in 439 bed 1. Follow-up chest pain, status post hysterectomy. Patient is lying in bed with nurse at bedside. She experienced another episode of chest pain approximately 3 AM. It woke her from her sleep. Pain was substernal and nonradiating. Rated a 6 out of 10. Described as an ache. It lasted for approximately 15 minutes. Nursing staff gave her Maalox which helped relieve symptoms. She denies any associated diaphoresis, nausea, shortness of breath, palpitations or lightheadedness. Nothing made symptoms worse. She recalls having similar symptoms many years ago with acid reflux when she was . Review of Systems Review of Systems: All systems reviewed & are unremarkable except as noted in HPI & below Physical Exam Physical Exam: Gen: WD/WN, NAD, A&O x3 HEENT: Normocephalic, atraumatic, conjunctivae moist, sclerae anicteric, mucous membranes moist. Lung: Clear to Auscultation bilaterally, no wheezes/rales/rhonchi Heart: Regular rate, regular rhythm, no murmurs, rubs, or gallops, chest pain is not reproducible Abdomen: Soft, NT, ND +BS x 4 Extremities: No edema Skin: Warm, no rash, negative turgor. Results & Data Results & Data ([facility]) Vital Signs (Past 12 Hours) Vital Signs Temp Pulse Pulse Resp BP Pulse Ox 02/09/21 07:07 37.1 C 91 H 21 135/79 02/09/21 03:10 36.8 C 88 18 149/89 H 97 02/09/21 02:25 37.0 C 89 18 166/93 H 96 02/08/21 23:10 36.9 C 89 18 142/84 H 97 Laboratory Results Short CBC 02/08/21 02/09/21 Range/Units 16:01 06:49 WBC 12.86 H (4.8-10.8) K/uL Hgb 8.6 L 8.9 L (12.0-16.0) g/dL Hct 29.4 L 30.5 L (37-47) % Plt Count 314 (130-400) K/uL BMP 02/09/21 06:49 Sodium 139 Potassium 3.7 Chloride 108 H Carbon Dioxide 22 BUN 8 Creatinine 0.80 Glucose 99 Calcium 8.3 L Cardiac Enzymes 02/08/21 02/08/21 02/09/21 Range/Units 08:51 16:01 00:05 Troponin I < 0.015 < 0.015 < 0.015 (0-0.045) ng/ml Diagnostic Findings Echo 02/08/21: EF 65-70%, mild triscuspid regurg Medications Administered Medication List Acetaminophen (Acetaminophen 325 Mg Tab) 650 mg PO Q6H PRN PRN Reason: pain, headache or fever Stop: 03/08/21 10:24 Last Admin: 02/08/21 10:14 Dose: 650 mg Documented by: [id number] Admin: 02/07/21 20:53 Dose: 650 mg Documented by: [id number] Admin: 02/06/21 21:49 Dose: 650 mg Documented by: [id number] Amlodipine Besylate (Amlodipine Besylate 5 Mg Tab) 5 mg PO QAM [facility] Stop: 03/11/21 08:59 Last Admin: 02/09/21 08:16 Dose: 5 mg Documented by: [id number] Docusate Sodium (Docusate Sodium 100 Mg Cap) 100 mg PO BID [facility] Stop: 03/08/21 20:59 Last Admin: 02/09/21 08:16 Dose: 100 mg Documented by: [id number] Admin: 02/08/21 20:00 Dose: 100 mg Documented by: [id number] Admin: 02/08/21 08:29 Dose: 100 mg Documented by: [id number] Admin: 02/07/21 20:54 Dose: 100 mg Documented by: [id number] Admin: 02/07/21 08:29 Dose: 100 mg Documented by: [id number] Admin: 02/06/21 20:31 Dose: 100 mg Documented by: [id number] Ferrous Sulfate (Ferrous Sulfate 325 Mg Tab) 325 mg PO BIDM [facility] Stop: 03/09/21 07:59 Last Admin: 02/09/21 08:15 Dose: 325 mg Documented by: [id number] Admin: 02/08/21 20:01 Dose: 325 mg Documented by: [id number] Admin: 02/08/21 08:29 Dose: 325 mg Documented by: [id number] Admin: 02/07/21 17:21 Dose: 325 mg Documented by: [id number] Admin: 02/07/21 08:29 Dose: 325 mg Documented by: [id number] Ibuprofen (Ibuprofen 600 Mg Tab) 600 mg PO Q4H PRN PRN Reason: pain, HUBER, cramping or fever Stop: 03/08/21 10:24 Last Admin: 02/09/21 08:31 Dose: 600 mg Documented by: [id number] Admin: 02/08/21 13:55 Dose: 600 mg Documented by: [id number] Admin: 02/08/21 04:05 Dose: 600 mg Documented by: [id number] Admin: 02/07/21 20:53 Dose: 600 mg Documented by: [id number] Admin: 02/07/21 17:23 Dose: 600 mg Documented by: [id number] Admin: 02/07/21 11:32 Dose: 600 mg Documented by: [id number] Admin: 02/07/21 06:13 Dose: 600 mg Documented by: [id number] Admin: 02/07/21 00:00 Dose: 600 mg Documented by: [id number] Admin: 02/06/21 15:13 Dose: 600 mg Documented by: [id number] Oxycodone/Acetaminophen (Oxycodone/Acetaminophen 5mg/325mg Tab) 1 tab PO Q4H PRN PRN Reason: Pain Scale 1,2,3,4,5 Stop: 02/20/21 10:24 Last Admin: 02/08/21 04:05 Dose: 1 tab Documented by: [id number] Admin: 02/07/21 17:23 Dose: 1 tab Documented by: [id number] Admin: 02/07/21 11:33 Dose: 1 tab Documented by: [id number] Admin: 02/07/21 06:14 Dose: 1 tab Documented by: [id number] Admin: 02/07/21 02:13 Dose: 1 tab Documented by: [id number] Admin: 02/06/21 16:25 Dose: 1 tab Documented by: [id number] Simethicone (Simethicone 80 Mg Chew) 80 mg PO TID PRN PRN Reason: Gas Stop: 03/08/21 10:24 Last Admin: 02/07/21 20:53 Dose: 80 mg Documented by: [id number] Admin: 02/06/21 16:25 Dose: 80 mg Documented by: [id number] Discontinued Medications Al Hydrox/Mg Hydrox/Simethicone (Aluminum/Magnesium/Simeth (Maalox Max) 30 Ml Udc) 30 ml PO NOW STA Stop: 02/09/21 02:44 Last Admin: 02/09/21 03:00 Dose: 30 ml Documented by: [id number] Amlodipine Besylate (Amlodipine Besylate 5 Mg Tab) 5 mg PO NOW ONE Stop: 02/08/21 09:22 Last Admin: 02/08/21 10:14 Dose: 5 mg Documented by: [id number] Bupivacaine HCl (Bupivacaine 0.5 % 5 Mg/1 Ml Mpf 30ml Vial) Confirm Administered Dose 30 ml .ROUTE .STK-MED ONE Stop: 02/06/21 06:54 Last Admin: 02/06/21 09:40 Dose: 30 ml Documented by: [id number] Diphenhydramine HCl (Diphenhydramine Capsule 25 Mg Cap) 50 mg PO NOW ONE Stop: 02/06/21 21:08 Last Admin: 02/06/21 21:48 Dose: 50 mg Documented by: [id number] Diphenhydramine HCl (Diphenhydramine Capsule 25 Mg Cap) 25 mg PO NOW ONE Stop: 02/07/21 20:24 Last Admin: 02/07/21 20:53 Dose: 25 mg Documented by: [id number] Lactated Ringer's (Lr) 1,000 mls @ 125 mls/hr IV .Q8H RJ Stop: 02/06/21 13:59 Last Admin: 02/06/21 07:05 Dose: Not Given Documented by: [id number] Cefazolin Sodium (Ancef 2000mg) 2,000 mg in 15 mls @ 3.75 mls/min IV PREOP RJ Stop: 02/06/21 18:00 Last Admin: 02/06/21 07:05 Dose: 3.75 mls/min Documented by: [id number] Lactated Ringer's (Lr) 1,000 mls @ 15 mls/hr IV .Q24H RJ Stop: 02/07/21 05:59 Last Infusion: 02/06/21 07:05 Dose: 0 mls/hr Documented by: [id number] Admin: 02/06/21 05:50 Dose: 15 mls/hr Documented by: [id number] Lactated Ringer's (Lr) 1,000 mls @ 125 mls/hr IV .Q8H RJ Stop: 03/08/21 10:29 Last Infusion: 02/07/21 10:29 Dose: 0 mls/hr Documented by: [id number] Infusion: 02/07/21 04:49 Dose: 125 mls/hr Documented by: [id number] Infusion: 02/06/21 22:20 Dose: 0 mls/hr Documented by: [id number] Admin: 02/06/21 21:53 Dose: 125 mls/hr Documented by: [id number] Infusion: 02/06/21 20:35 Dose: 0 mls/hr Documented by: [id number] Admin: 02/06/21 12:00 Dose: 125 mls/hr Documented by: [id number] Lactated Ringer's (Lr) 500 mls @ 999 mls/hr IV .Q31M ONE Stop: 02/06/21 21:54 Last Admin: 02/06/21 21:25 Dose: 999 mls/hr Documented by: [id number] Miscellaneous ( Floseal Hemostatic Matrix 10ml) 10 ml TOP ONCE ONE Stop: 02/06/21 09:40 Last Admin: 02/06/21 09:39 Dose: 10 ml Documented by: [id number] ECG Rate (beats per minute): 90 Rhythm: normal sinus
--- NOTE | 2021-02-09 09:13 | Progress Note ---
Date of Service February 09, 2021 Assessment & Plan (1) Chronic anemia: (2) S/P laparoscopic hysterectomy: Plan: POD #3 s/p 1.lap Hys , Bilat salpingectomy; pt doing well. Tolerating Po food and meds. Minimal pain 2.Chronic Anemia: #Units PRBc. stable H/H 3. Chest pain; Nml Echo; Pain improved with protonics 4.SOB: Improved after blood transfusion 5. HTN; Started on meds; stable BP Pt dong well overall Discussed disch with medicine Admission and Anticipated Discharge Date Admission Date: February 06, 2021 Review of Systems Review of Systems: All systems reviewed & are unremarkable except as noted in HPI & below Physical Exam Constitutional: WD/WN, vitals as above Eyes: PERRL, conjunctivae normal, anicteric sclerae ENMT: external ear and nose normal, oropharynx normal Neck: trachea midline, no thyromegaly Respiratory: normal respiratory effort, lungs clear to auscultation Cardiovascular: RRR, no murmur, no edema Chest (Breasts): normal inspection/palpation of breasts Gastrointestinal (Abdomen): normal bowel sounds, soft, nontender, no hepatosplenomegaly Musculoskeletal: no cyanosis or clubbing, extremities motor strength 5/5 Skin: + incision (Incision clean,dry and intact) Neurologic: patellar DTR's 2+ bilat, sensation intact Psychiatric: A+Ox3, euthymic affect Genitourinary: no vaginal lesions, no adnexal mass Lymphatic: no cervical or axillary lymphadenopathy Results & Data ([facility]) Vital Signs (Past 12 Hours) Vital Signs Temp Pulse Pulse Resp BP Pulse Ox 02/09/21 07:07 37.1 C 91 H 21 135/79 02/09/21 03:10 36.8 C 88 18 149/89 H 97 02/09/21 02:25 37.0 C 89 18 166/93 H 96 02/08/21 23:10 36.9 C 89 18 142/84 H 97
--- NOTE | 2021-02-09 09:14 | Obstetrical Progress Note ---
Date of Service February 09, 2021 Subjective Review of Systems All systems reviewed & are unremarkable except as noted in HPI & below Physical Exam Constitutional WD/WN, vitals as above Eyes PERRL, conjunctivae normal, anicteric sclerae ENMT external ear and nose normal, oropharynx normal Neck trachea midline, no thyromegaly Respiratory normal respiratory effort, lungs clear to auscultation Cardiovascular RRR, no murmur, no edema Chest (Breasts) normal inspection/palpation of breasts Gastrointestinal (Abdomen) normal bowel sounds, soft, nontender, no hepatosplenomegaly Musculoskeletal no cyanosis or clubbing, extremities motor strength 5/5 Skin + incision (Incision clean,dry and intact) Neurologic patellar DTR's 2+ bilat, sensation intact Psychiatric A+Ox3, euthymic affect Genitourinary no vaginal lesions, no adnexal mass Lymphatic no cervical or axillary lymphadenopathy Results & Data ([facility]) Vital Signs (Past 12 Hours) Vital Signs Temp Pulse Pulse Resp BP Pulse Ox 02/09/21 07:07 37.1 C 91 H 21 135/79 02/09/21 03:10 36.8 C 88 18 149/89 H 97 02/09/21 02:25 37.0 C 89 18 166/93 H 96 02/08/21 23:10 36.9 C 89 18 142/84 H 97
[2021-02-09 09:50] VITALS: PULSE 89
[2021-02-09] MEDS ORDERED: FAMOTIDINE 20 MG TAB PO SCH (21:00)
== END 2021-02-09 10:22 | disposition home or self-care (01) ==
LOC: ASU 05:10 → INTOOBSV 10:25 → 4S2 10:25